=== PATIENT | male | born 1990 | race Caucasian/White ===

== ENCOUNTER → 2017-01-16 | Outpatient (CLI) | payer OTHER ==
--- NOTE | 2017-01-17 12:31 | REP ---
RIGHT TOES: HISTORY: Pain after trauma. COMPARISON: None. There is a subtle fracture involving the base of the tuft of the distal phalanx of the first digit, which is a hairline fracture and nondisplaced. IMPRESSION: Hairline fracture involving the distal aspect of the base of the tuft. Signed by Jack Quezada DO 01/17/2017 01:32 P
== END ==
LOC: M WUC 18:32
PROVIDERS: ATTEND Physician Assistant
DX: S92.424A Nondisplaced fracture of distal phalanx of right great toe, initial encounter for closed fracture (principal); X58.XXXA Exposure to other specified factors, initial encounter; Y92.9 Unspecified place or not applicable; Y93.9 Activity, unspecified; Y99.9 Unspecified external cause status

== ENCOUNTER → 2017-06-10 | Outpatient (CLI) | payer OTHER ==
[2017-06-10 18:19] LABS: ALBUMIN 4.2 GM/DL (3.2-5.2); ALBUMIN/GLOBULIN RATIO 1.17 (1.00-1.93); ALKALINE PHOSPHATASE 90 U/L (45-117); ALT/SGPT 27 U/L (12-78); ANION GAP 4 MEQ/L (8-16); AST/SGOT 18 U/L (15-37); BILIRUBIN,TOTAL 0.3 MG/DL (0.2-1.0); BLOOD UREA NITROGEN 15 MG/DL (7-18); CALCIUM LEVEL 9.5 MG/DL (8.5-10.1); CARBON DIOXIDE LEVEL 30 MEQ/L (21-32); CHLORIDE LEVEL 105 MEQ/L (98-107); CREATININE FOR GFR 1.01 MG/DL (0.70-1.30); GLOMERULAR FILTRATION RATE > 60.0 (>60); GLUCOSE, FASTING 79 MG/DL (70-105); POTASSIUM SERUM 4.2 MEQ/L (3.5-5.1); SODIUM LEVEL 139 MEQ/L (136-145); TOTAL PROTEIN 7.8 GM/DL (6.4-8.2)
[2017-06-10 18:50] LABS: MEAN CORPUSCULAR HEMOGLOBIN 29.3 pg (27.0-33.0); MEAN CORPUSCULAR HGB CONC 34.6 g/dl (32.0-36.5); MEAN CORPUSCULAR VOLUME 84.6 fl (80.0-96.0); RED CELL DISTRIBUTION WIDTH 12.1 % (11.5-14.5); WHITE BLOOD COUNT 8.6 10^3/uL (4.0-10.0)
[2017-06-10 19:52] LABS: BASOPHILS 2 % (0-4); EOSINOPHILS 6 % (0-5)
[2017-06-13 00:06] LABS: Lyme Disease IgG/IgM Antibodie <0.91 ISR (0.00-0.90); Lyme Disease IgM Ab Quantitati <0.80 index (0.00-0.79)
== END ==
LOC: M WUC 17:04
PROVIDERS: ATTEND Physician Assistant
DX: M79.1 Myalgia (principal)

== ENCOUNTER → 2018-04-25 | Outpatient (CLI) | payer OTHER ==
[2018-04-25 11:02] LABS: BASO % 0.5 % (0.0-1.0); EOS # 0.7 10^3/uL (0.0-0.50); EOS % 8.8 % (0.0-3.0); HEMATOCRIT 41.8 % (42.0-52.0); HEMOGLOBIN 14.1 g/dl (13.5-17.5); IMMATURE GRANULOCYTE % 0.2 % (0-3.0); LYMPH # 2.3 10^3/uL (1.5-6.5); LYMPH % 28.6 % (24.0-44.0); MEAN CORPUSCULAR HEMOGLOBIN 27.8 pg (27.0-33.0); MEAN CORPUSCULAR HGB CONC 33.7 g/dl (32.0-36.5); MEAN CORPUSCULAR VOLUME 82.4 fl (80.0-96.0); MONO # 0.8 10^3/uL (0.0-0.8); MONO % 9.6 % (0.0-5.0); NEUTROPHILS # 4.2 10^3/uL (1.8-7.7); NEUTROPHILS % 52.3 % (36.0-66.0); PLATELET COUNT, AUTOMATED 276 10^3/uL (150-450); RED BLOOD COUNT 5.07 10^6/uL (4.30-6.10); RED CELL DISTRIBUTION WIDTH 12.5 % (11.5-14.5)
[2018-04-25 11:19] LABS: ALBUMIN 3.7 GM/DL (3.2-5.2); ALBUMIN/GLOBULIN RATIO 0.93 (1.00-1.93); ALKALINE PHOSPHATASE 99 U/L (45-117); ALT/SGPT 45 U/L (12-78); AMYLASE 84 U/L (25-115); ANION GAP 3 MEQ/L (8-16); AST/SGOT 28 U/L (7-37); BILIRUBIN,TOTAL 0.4 MG/DL (0.2-1.0); BLOOD UREA NITROGEN 16 MG/DL (7-18); CALCIUM LEVEL 9.1 MG/DL (8.5-10.1); CARBON DIOXIDE LEVEL 31 MEQ/L (21-32); CHLORIDE LEVEL 108 MEQ/L (98-107); CREATININE FOR GFR 0.98 MG/DL (0.70-1.30); GLOMERULAR FILTRATION RATE > 60.0 (>60); GLUCOSE, FASTING 77 MG/DL (70-100); LIPASE 129 U/L (73-393); POTASSIUM SERUM 4.4 MEQ/L (3.5-5.1); SODIUM LEVEL 142 MEQ/L (136-145); TOTAL PROTEIN 7.7 GM/DL (6.4-8.2)
== END ==
LOC: M WUC 09:57
DX: R10.814 Left lower quadrant abdominal tenderness (principal)
CPT/HCPCS: 82150

== ENCOUNTER → 2019-01-25 | Outpatient (CLI) | payer OTHER ==
--- NOTE | 2019-01-26 02:45 | REP ---
Clinical: Contusion. Technique: Three views of the sacrum and coccyx. Findings: AP and lateral views demonstrate normal sacrum and coccyx with associated normal symmetric sacroiliac joints. No acute fracture or subluxation is appreciated. Surrounding soft tissues are unremarkable. Impression: Normal sacrum/coccyx radiograph series. Electronically Signed by Luis Peterson MD 01/26/2019 02:36 A
--- NOTE | 2019-01-26 02:47 | REP ---
Clinical: Back pain with recent trauma/contusion. Technique: AP, lateral, bilateral oblique and coned-down views of the lumbosacral spine. Findings: Alignment and lordosis maintained. No acute fracture / compression injury or subluxation. Disc spaces are relatively well maintained. No spondylolysis or spondylolisthesis. Impression: Essentially normal lumbosacral spine series. Electronically Signed by Luis Peterson MD 01/26/2019 02:39 A
== END ==
LOC: M WUC 09:43
PROVIDERS: ATTEND Physician Assistant
DX: S30.0XXA Contusion of lower back and pelvis, initial encounter (principal); X58.XXXA Exposure to other specified factors, initial encounter; Y92.89 Other specified places as the place of occurrence of the external cause

== ENCOUNTER → 2019-03-02 | Outpatient (REF) | payer OTHER | LOC: M SMT 13:24 | PROVIDERS: ATTEND Urology | DX: Z30.09 Encounter for other general counseling and advice on contraception (principal) ==

== ENCOUNTER → 2019-05-25 | Outpatient (REF) | payer OTHER ==
[~2019-05-25] MED LIST: xyzal
[2019-05-25 13:41] LABS: SEMEN APPEARANCE OPAQUE (OPAQUE); SEMEN VISCOSITY LIQUID (LIQUID); SEMEN pH 8.5 (7.0-8.0); WBC CONCENTRATION <=1 M/ml (<=1 M/ml)
== END ==
LOC: M SMT 11:55
PROVIDERS: ATTEND Urology
DX: Z30.09 Encounter for other general counseling and advice on contraception (principal)

== ENCOUNTER 2019-05-31 09:19 | Emergency (ER) | payer OTHER ==
[~2019-05-31] VITALS: Ht 175.3 cm; Wt 98.6 kg
[2019-05-31] MEDS ORDERED: xyzal (09:24)
[2019-05-31] MEDS ORDERED: NS 1,000 ML IV ONE ×2 (09:45→10:15)
[2019-05-31 10:05] LABS: BASO % 0.2 % (0.0-1.0); EOS # 0.2 10^3/uL (0.0-0.5); EOS % 1.3 % (0.0-3.0); HEMATOCRIT 43.6 % (42.0-52.0); HEMOGLOBIN 14.4 g/dl (13.5-17.5); LYMPH # 0.8 10^3/uL (1.5-5.0); LYMPH % 6.6 % (24.0-44.0); MEAN CORPUSCULAR VOLUME 84.7 fl (80.0-96.0); MONO # 0.4 10^3/uL (0.0-0.8); MONO % 3.4 % (0.0-5.0); NEUTROPHILS # 10.5 10^3/uL (1.5-8.5); NEUTROPHILS % 88.2 % (36.0-66.0); PLATELET COUNT, AUTOMATED 247 10^3/uL (150-450); RED BLOOD COUNT 5.15 10^6/uL (4.30-6.10); WHITE BLOOD COUNT 11.9 10^3/uL (4.0-10.0)
[2019-05-31] MEDS ORDERED: KETOROLAC 30 MG/ML VIAL (J1885) IV ONE ×2 (10:15→13:15)
[2019-05-31 10:29] LABS: BILIRUBIN,DIRECT 0.2 MG/DL (0.0-0.2); BILIRUBIN,TOTAL 0.6 MG/DL (0.2-1.0); TOTAL PROTEIN 7.7 GM/DL (6.4-8.2)
--- NOTE | 2019-05-31 12:26 | REP ---
CT ABDOMEN AND PELVIS WITHOUT CONTRAST: CT abdomen and pelvis performed without oral or IV contrast. Sagittal and coronal reconstruction images are performed. Visualized lung bases demonstrate no infiltrate. The liver demonstrates diffuse fatty infiltration. The gallbladder is grossly unremarkable. The spleen, adrenals, pancreas, and kidneys are grossly unremarkable. No renal, ureteral or bladder calculus is seen. There is no hydroureteronephrosis. There is no abdominal aortic aneurysm. There is no adenopathy. There is no free air or free fluid. No bowel wall thickening is seen. The appendix is not inflamed. The distal end of the appendix demonstrates diffuse calcification. No pelvic mass is seen. Urinary bladder is mildly distended and is grossly unremarkable. IMPRESSION: No renal or ureteral calculus. No hydroureteronephrosis. No evidence of appendicitis. Diffuse fatty infiltration of the liver. Electronically Signed by Thai Jane MD 06/01/2019 10:11 A
[2019-05-31] MEDS ORDERED: CYCLOBENZAPRINE 5MG TABLET PO ONE (13:15)
[2019-05-31] MEDS ORDERED: ACETAMINOPHEN 500 MG TAB PO ONE (13:15)
[2019-05-31 14:23] VITALS: BP 10/60
== END 2019-05-31 15:12 | disposition home or self-care (01) ==
LOC: M ED 09:19
DX: M79.10 Myalgia, unspecified site (principal); R11.2 Nausea with vomiting, unspecified
CPT/HCPCS: 74176; 80047; 80076; 81001; 82550; 83690; 85025; 85652; 96361; 96374; 96376; 99284; J1885

== ENCOUNTER → 2019-06-03 | Outpatient (CLI) | payer OTHER ==
--- NOTE | 2019-06-03 17:51 | REP ---
SCROTAL ULTRASOUND: Real-time sonographic evaluation of the scrotum and contents are performed. Testicles are normal in size and echotexture, right testicle measuring 4.7 x 2.3 x 2.6 cm and left testicle 4.6 x 2.3 x 2.6 cm. There is no mass or torsion. Tiny cyst is seen in the head of each epididymis about 2 mm in diameter. No varicocele or hydrocele is seen. Resistive index right testicle 0.49 and 0.51. IMPRESSION: Essentially negative scrotal ultrasound. Tiny cyst is seen in the head of each epididymis. No testicular mass or torsion. Electronically Signed by Thai Jane MD 06/03/2019 06:56 P
== END ==
LOC: M RAD 13:53
PROVIDERS: ATTEND Nurse Practitioner Women's Health
DX: N50.819 Testicular pain, unspecified (principal); N50.3 Cyst of epididymis

== ENCOUNTER → 2019-07-05 | Outpatient (REF) | payer OTHER ==
[2019-07-05 11:49] LABS: CHOLESTEROL RISK RATIO 3.96 (<5)
== END ==
LOC: M SFHCCLAY 08:23
PROVIDERS: ATTEND Family Medicine
DX: K76.0 Fatty (change of) liver, not elsewhere classified (principal); Z13.220 Encounter for screening for lipoid disorders

== ENCOUNTER → 2020-01-04 | Outpatient (REF) | payer OTHER ==
[2020-01-04 12:03] LABS: ALBUMIN 3.9 GM/DL (3.2-5.2); ALT/SGPT 79 U/L (12-78); BILIRUBIN,DIRECT < 0.1 MG/DL (0.0-0.2); BILIRUBIN,TOTAL 0.4 MG/DL (0.2-1.0); TOTAL PROTEIN 7.8 GM/DL (6.4-8.2)
== END ==
LOC: M SFHCCLAY 07:57
PROVIDERS: ATTEND Family Medicine
DX: K76.0 Fatty (change of) liver, not elsewhere classified (principal)

== ENCOUNTER 2021-03-26 10:01 | Observation (INO) | payer OTHER ==
[~2021-03-26] VITALS: Ht 175.3 cm; Wt 109.0 kg
--- NOTE | 2021-03-26 11:58 | REP ---
INDICATION: cold sx for 1 month/ previous neg covid test. COMPARISON: Comparison chest x-ray April 25, 2018. TECHNIQUE: Two views.. FINDINGS: The lungs are well inflated and free of infiltrate. The pleural angles are sharp. The heart size is normal. Pulmonary vasculature is not increased. No significant bony abnormality is seen. IMPRESSION: Negative chest x-ray. <Electronically signed by Phani Souza > 03/26/21 [id number]
[2021-03-26] MEDS ORDERED: NS 1,000 ML IV ONE (12:00)
[2021-03-26] MEDS ORDERED: ALBUTEROL 90 MCG/ACT 8GM HFA INHALER INH ONE (12:00)
[2021-03-26 12:34] LABS: BASO # 0.1 10^3/uL (0.0-0.2); BASO % 0.3 % (0.0-1.0); EOS # 0.2 10^3/uL (0.0-0.5); EOS % 1.2 % (0.0-3.0); HEMATOCRIT 43.7 % (42.0-52.0); HEMOGLOBIN 14.2 g/dl (13.5-17.5); LYMPH # 2.7 10^3/uL (1.5-5.0); LYMPH % 15.4 % (24.0-44.0); MEAN CORPUSCULAR HEMOGLOBIN 26.6 pg (27.0-33.0); MEAN CORPUSCULAR HGB CONC 32.5 g/dl (32.0-36.5); MEAN CORPUSCULAR VOLUME 81.8 fl (80.0-96.0); MONO # 0.8 10^3/uL (0.0-0.8); MONO % 4.6 % (2.0-8.0); NEUTROPHILS # 13.8 10^3/uL (1.5-8.5); NEUTROPHILS % 78.1 % (36.0-66.0); PLATELET COUNT, AUTOMATED 281 10^3/uL (150-450); RED BLOOD COUNT 5.34 10^6/uL (4.30-6.10); WHITE BLOOD COUNT 17.7 10^3/uL (4.0-10.0)
[2021-03-26 13:19] LABS: MONO SCRN NEGATIVE (NEGATIVE)
[2021-03-26 13:22] LABS: ALBUMIN 3.8 GM/DL (3.2-5.2); ALT/SGPT 74 U/L (12-78); BILIRUBIN,DIRECT 0.1 MG/DL (0.0-0.2); BILIRUBIN,TOTAL 0.5 MG/DL (0.2-1.0); BLOOD UREA NITROGEN 13 MG/DL (7-18); CALCIUM LEVEL 9.2 MG/DL (8.5-10.1); CARBON DIOXIDE LEVEL 28 MEQ/L (21-32); CHLORIDE LEVEL 106 MEQ/L (98-107); CK-MB VALUE MASS 1.6 NG/ML (<3.6); CPK CREATINE PHOSPHOKINASE 220 U/L (39-308); CREATININE FOR GFR 1.05 MG/DL (0.70-1.30); GLOMERULAR FILTRATION RATE > 60.0 (>60); GLUCOSE, FASTING 83 MG/DL (70-100); MB/CK RELATIVE INDEX 0.73 (< OR =4); NT-PRO BNP 25 PG/ML (<125); POTASSIUM SERUM 4.3 MEQ/L (3.5-5.1); SODIUM LEVEL 138 MEQ/L (136-145); THYROID STIMULATING HORMONE 0.455 uIU/ML (0.358-3.740); THYROXINE (T4) 6.8 UG/DL (4.5-12.0); TOTAL PROTEIN 7.8 GM/DL (6.4-8.2); TROPONIN I < 0.02 NG/ML (< 0.10)
[2021-03-26] MEDS ORDERED: ISOVUE-370 76% 100ML VIAL As Ordered ONE (13:53)
--- NOTE | 2021-03-26 15:02 | REP ---
INDICATION: fever/sob. COMPARISON: Comparison is made with today's chest x-ray.. TECHNIQUE: 100 mL of Isovue 370 is administered and helical scanning is acquired. 3 mm axial images re-formatted. Coronal and sagittal MPR images are provided. FINDINGS: Digital preliminary relief cook radiograph is unremarkable. The lung beltran are free of infiltrate on axial CT images. No mass or nodule is appreciated. There is no evidence of pleural or pericardial effusion. No hilar or mediastinal mass or adenopathy is observed. No extra thoracic mass or adenopathy is seen. There is good opacification of the pulmonary arterial tree and the thoracic aorta and no vascular abnormality is appreciated. No endobronchial disease is appreciated. On bone window settings, no bony destructive lesion or fracture is seen. IMPRESSION: Negative contrast enhanced CT study of the chest. No evidence of infiltrate or atelectasis. <Electronically signed by Phani Souza > 03/26/21 [id number]
--- NOTE | 2021-03-26 15:08 | REP ---
INDICATION: fever/flank pain. COMPARISON: None. TECHNIQUE: Helical scanning was acquired and 4 mm axial images are re-formatted. Coronal and sagittal MPR images were generated and reviewed. The contrast enhancement dose is 100 mL of intravenous Isovue 370. FINDINGS: The digital preliminary automatic buffer radiograph is unremarkable. There is mild diffuse fatty infiltration of the liver on axial CT images. No focal hepatic lesion is seen. The spleen is normal in size homogeneous in texture. Normal adrenal glands are observed bilaterally. No abnormality is noted in the pancreas. The kidneys enhance symmetrically and are morphologically intact bilaterally. There is focal cortical scarring posterior cortex lower pole left kidney consistent with previous pyelonephritis reflux nephropathy. There is a small accessory renal artery on the left. No retroperitoneal mass or adenopathy is seen. No abdominal wall defect is seen. Urinary bladder, seminal vesicles, and prostate are unremarkable. No abdominal wall defect is seen. By history, patient reports prior appendectomy. No inflammatory changes are seen in the abdomen or pelvis. Small and large bowel loops are unremarkable. No bony destructive lesion is seen. IMPRESSION: Old focal cortical scarring lower pole left kidney posterior cortex question prior pyelonephritis versus reflux nephropathy. Mild diffuse fatty infiltration of the liver. Otherwise negative CT study of the abdomen and pelvis with IV contrast. <Electronically signed by Phani Souza > 03/26/21 [id number]
--- NOTE | 2021-03-26 15:11 | ECGEPIP ---
[facility] - ED Test Date: 2021-03-26 Pat Name: RICH CARRERO Department: Room: - Gender: Male [employer] Manager: : 1990 Requested By: BRIANA SANDERS PA-C Order Number: [id number] Reading MD: Popeye Davidson Measurements Intervals [place] Rate: 65 P: 52 SD: 152 QRS: 16 QRSD: 78 T: 12 QT: 388 QTc: 403 Interpretive Statements Normal sinus rhythm NONSPECIFIC T WAVE ABNORMALITY(S) NO PRIORS FOR COMPARISON Electronically Signed on 03-26-2021 15:10:48 EDT by Popeye Davidson
[2021-03-26 16:35] VITALS: O2SAT 97
[2021-03-26] MEDS ORDERED: LEVOTAB10 PO (18:52)
[2021-03-26] MEDS ORDERED: MAALOX 30 ML SUSP *UDC PO PRN (19:25)
[2021-03-26] MEDS ORDERED: ACETAMINOPHEN TAB 650MG DOSE (2X325MG) PO PRN (19:25)
[2021-03-26] MEDS ORDERED: MOM 30ML SUSPENSION UDC PO PRN (19:25)
--- NOTE | 2021-03-26 19:25 | HPEPDOC ---
[facility] Medical History & Physical Date of Admission Mar 26, 2021 Date of Service: Mar 26, 2021 Primary Care Physician: GARRETT TOURE DO Attending Physician: YOKASTA WALKER MD History and Physical TIME OF SERVICE: 8:25 PM CHIEF COMPLAINT: Fever HISTORY OF PRESENT ILLNESS: Mr. Shipley, a 30-year-old gentleman, has been feeling unwell for about 6 or 7 weeks. He has been having relapsing and remitting fevers as high as 102.7, back aches and joint aches, along with "flulike symptoms". He has not noticed if his symptoms occurred during certain times of the day. He has had multiple negative Covid test. REVIEW OF SYSTEMS: 10 point review of systems negative except as listed in HPI PAST MEDICAL/ SURGICAL HISTORY: Fatty liver, appendectomy, vasectomy SOCIAL HISTORY: He does not smoke drink or use recreational drugs is and lives with his . He works at the [employer] and mentioned that he has been is exposed to goose droppings every summer since 2017. FAMILY HISTORY: He denied any family medical history ALLERGIES: Please see below. HOME MEDICATIONS: Please see below. PHYSICAL EXAMINATION: Vital Signs Date Time Temp Pulse Resp B/P (MAP) Pulse Ox O2 Delivery O2 Flow Rate FiO2 03/26/21 10:02 98.9 95 16 158/84 (108) 94 Room Air GENERAL APPEARANCE: well nourished and developed / NAD HEENT: EOMI / MMM&P CARDIOVASCULAR: RRR/NMRG / no LE edema LUNGS: CTAB on RA ABDOMEN: contour flat / soft & NT w palpation MUSCULOSKELETAL: NCAT /gait slow and slightly stiff is complaining of back pain INTEGUMENT: not flushed not diaphoretic not cyanotic/hypertrophy of the epidermal skin on both knees NEUROLOGICAL: CN 2-12 intact / speech not dysarthric PSYCHIATRIC: A&O x3/able to understand and follow all commands LABORATORY DATA: See below. IMAGING: Chest x-ray IMPRESSION: Negative chest x-ray. CT abdomen and pelvis IMPRESSION: Old focal cortical scarring lower pole left kidney posterior cortex question prior pyelonephritis versus reflux nephropathy. Mild diffuse fatty infiltration of the liver. Otherwise negative CT study of the abdomen and pelvis with IV contrast. Chest CT IMPRESSION: Negative contrast enhanced CT study of the chest. No evidence of infiltrate or atelectasis. MICROBIOLOGY: Respiratory panel, mono screen, and group A strep are negative/blood cultures cultures and Lyme disease testing are pending ASSESSMENT: Mr. Shipley is a 30-year-old gentleman who was admitted for evaluation of leukocytosis of unclear cause. PLAN: 1 Leuocytosis We do not yet have any documented fever yet Per up-to-date he does not quite meet the criteria for fever of unknown origin because he has not had an uncertain diagnosis after 1 week of studies and observation in the hospital. My suspicion is this is more likely idiopathic or autoimmune / rheumatological in nature Plan: Admit to the medical floor under observation status/follow-up HIV, Hepatitis panel, Lyme's disease, ESR, CRP, blood cultures, C3, C4,SALINA, dsDNA, CPK, RF, and HIV testing & Echo /if work-up is equivocal his PCP or the daytime team may consider referral to counter tacker on an outpatient basis 2 Elevated blood pressure His readings in the ER elevated which may be due to essential hypertension or stress & anxiety Plan:f/u on manual blood pressure / he can follow-up with his PCP for repeat blood pressure testing and/or ambulatory blood pressure monitor 3 Class II obesity BMI 35.5 which complicates his care Plan: He can follow-up with his PCP to discuss lifestyle modifications and screening for diabetes DVT PROPHYLAXIS: n/a he is ambulatory and his Philip score is 0 therefore pharmacological prophylaxis is not indicated DISPOSITION: home after less than 2 midnight's stay Home Medications Scheduled Levocetirizine Dihydrochloride (Levocetirizine Dihydrochloride) 5 Mg Tablet, 5 MG PO DAILY Allergies Coded Allergies: No Known Allergies (Unverified , 05/31/19) A-FIB/CHADSVASC A-FIB History Current/History of A-Fib/PAF?: No Current PO Anticoag Therapy: No YOKASTA WALKER MD Mar 26, 2021 19:25
[2021-03-27 06:26] LABS: HEMATOCRIT 43.8 % (42.0-52.0); HEMOGLOBIN 14.1 g/dl (13.5-17.5); MEAN CORPUSCULAR HEMOGLOBIN 26.3 pg (27.0-33.0); MEAN CORPUSCULAR HGB CONC 32.2 g/dl (32.0-36.5); MEAN CORPUSCULAR VOLUME 81.7 fl (80.0-96.0); PLATELET COUNT, AUTOMATED 290 10^3/uL (150-450); RED BLOOD COUNT 5.36 10^6/uL (4.30-6.10); WHITE BLOOD COUNT 9.2 10^3/uL (4.0-10.0)
[2021-03-27 07:01] LABS: BLOOD UREA NITROGEN 14 MG/DL (7-18); CALCIUM LEVEL 8.3 MG/DL (8.5-10.1); CARBON DIOXIDE LEVEL 27 MEQ/L (21-32); CHLORIDE LEVEL 107 MEQ/L (98-107); CREATININE FOR GFR 0.94 MG/DL (0.70-1.30); GLOMERULAR FILTRATION RATE > 60.0 (>60); GLUCOSE, FASTING 88 MG/DL (70-100); POTASSIUM SERUM 4.1 MEQ/L (3.5-5.1); SODIUM LEVEL 139 MEQ/L (136-145)
[2021-03-27 07:04] LABS: COMPLEMENT C3 154 MG/DL (90-180); COMPLEMENT C4 34 MG/DL (10-40); CPK CREATINE PHOSPHOKINASE 183 U/L (39-308); RHEUMATOID FACTOR QUANT < 10.0 IU/ML (<15.0)
[2021-03-27] MEDS ORDERED: NORV5TAB PO (08:32)
[2021-03-27 09:22] LABS: HEPATITIS B SURFACE ANTIGEN NEGATIVE (NEGATIVE)
[2021-03-27 09:50] LABS: HEPATITIS B CORE ANTIBODY IGM NEGATIVE (NEGATIVE); HEPATITIS C VIRUS ABY INDEX 0.1 INDEX (<0.8)
[2021-03-27 09:51] LABS: HIV 1&2 SCREEN CENTAUR NEGATIVE (NEGATIVE)
[2021-03-27 09:52] LABS: HEPATITIS A ANTIBODY IGM NEGATIVE (NEGATIVE)
[2021-03-27 10:05] VITALS: BP 155/82
--- NOTE | 2021-03-27 10:59 | DS.PDOC ---
Discharge Summary General Date of Admission Mar 26, 2021 at 10:02 Date of Discharge 03/27/21 Attending Physician: CHINYERE FERNANDES MD Discharge Summary PROCEDURES PERFORMED DURING STAY: None. ADMITTING DIAGNOSES: 1. Leukocytosis. DISCHARGE DIAGNOSES: 1. Leukocytosis, hypertension, allergies to dogs. COMPLICATIONS/CHIEF COMPLAINT: Leukocytosis. HISTORY OF PRESENT ILLNESS: Patient was admitted with leukocytosis and fever of unknown origin, patient was found afebrile no fever could be documented and he was admitted for observation only.. HOSPITAL COURSE: Patient was admitted with leukocytosis, he had remained afebrile during his stay and there is no documentation of fever Per up-to-date he does not quite meet the criteria for fever of unknown origin because he has not had an uncertain diagnosis after 1 week of studies and observation in the hospital. Patient states allergy medications as he has 2 Labrador dogs which she is allergic to. Patient was informed that allergy medications can cause hypertension as well as other symptoms if he can avoid taking these medication. He was advised to follow-up with special education curriculum specialist for possibly other options such as desensitization to his dogs and he wants to keep them with him. Regarding his hypertension he was prescribed 5 Norvasc 5 mg p.o. daily and advised to discontinue all allergy medication including over the counter allergy medication as Sudafed as they can cause hypertension. Patient advised to follow-up with his primary care physician within 1 week for recheck and his blood pressure and changes medications as needed. Patient's repeat WBC count is within normal limits. DISPOSITION: home DISCHARGE MEDICATIONS: Please see below. ALLERGIES: Please see below. PHYSICAL EXAMINATION ON DISCHARGE: VITAL SIGNS: Please see below. GENERAL: Within normal limits HEENT: PERRLA extraocular muscle intact NECK: Supple no JVD no lymphadenopathy CARDIOVASCULAR EXAMINATION: S1-S2 regular RESPIRATORY EXAMINATION: Clear to A&P ABDOMINAL EXAMINATION: Soft nontender bowel sounds present no organomegaly EXTREMITIES: No clubbing sinus edema SKIN: Normal NEUROLOGICAL EXAMINATION: No focal motor or sensory deficit PSYCHIATRIC EXAMINATION: Normal LABORATORY DATA: Please see below. IMAGING: None PROGNOSIS: Good ACTIVITY: As tolerated. DIET: Regular DISCHARGE PLAN: DISPOSITION: Home, Self-Care. DISCHARGE INSTRUCTIONS: 1.. As per discharge instructions ITEMS TO FOLLOWUP ON ON OUTPATIENT: 1.. Follow-up with PCP in 1 week DISCHARGE CONDITION: Stable. TIME SPENT ON DISCHARGE: 22 min Vital Signs/I&Os Vital Signs Date Time Temp Pulse Resp B/P (MAP) Pulse Ox O2 Delivery O2 Flow Rate FiO2 03/27/21 10:05 98.1 68 20 155/82 (106) 99 Room Air I&O- Last 24 Hours up to 6 AM 03/27/21 06:00 Intake Total 1000 ml Balance 1000 ml Laboratory Data Labs 24H Laboratory Tests 2 03/26/21 12:16: 03/26/21 12:24: Immature Granulocyte % (Auto) 0.4, Neutrophils (%) (Auto) 78.1H, Lymphocytes (%) (Auto) 15.4L, Monocytes (%) (Auto) 4.6, Eosinophils (%) (Auto) 1.2, Basophils (%) (Auto) 0.3, Neutrophils # (Auto) 13.8H, Lymphocytes # (Auto) 2.7, Monocytes # (Auto) 0.8, Eosinophils # (Auto) 0.2, Basophils # (Auto) 0.1, Nucleated Red Blood Cells % (auto) 0.0, D-Dimer, Quantitative 361.67, Anion Gap 4L, Glomerular Filtration Rate > 60.0, Lactic Acid Level 1.1, Calcium Level 9.2, Total Bilirubin 0.5, Direct Bilirubin 0.1, Aspartate Amino Transf (AST/SGOT) 36, Alanine Aminotransferase (ALT/SGPT) 74, Alkaline Phosphatase 101, Total Creatine Kinase 220, Creatine Kinase MB 1.6, Creatine Kinase MB Relative Index 0.73, Troponin I < 0.02, WO-Qcn-N-Type Natriuretic Peptide 25, Total Protein 7.8, Albumin 3.8, Albumin/Globulin Ratio 1.0, Thyroid Stimulating Hormone (TSH) 0.455, Thyroxine (T4) 6.8, Monoscreen NEGATIVE 03/26/21 13:25: POC Group A Strep Rapid Screen NEGATIVE 03/26/21 17:27: Urine Color YELLOW, Urine Appearance CLEAR, Urine pH 6.0, Urine Specific [place] 1.054, Urine Protein NEGATIVE, Urine Glucose (UA) NEGATIVE, Urine Ketones TRACEH, Urine Blood NEGATIVE, Urine Nitrite NEGATIVE, Urine Bilirubin NEGATIVE, Urine Urobilinogen 0.2, Urine Leukocyte Esterase NEGATIVE, Urine WBC (Auto) 0, Urine RBC (Auto) 0, Urine Hyaline Casts (Auto) 0, Urine Bacteria (Auto) NEGATIVE, Urine Squamous Epithelial Cells 0, Urine Mucus (Auto) SMALL, Urine Sperm (Auto) 03/26/21 19:10: Erythrocyte Sedimentation Rate 11, C-Reactive Protein, Quantitative 2.31H, Procalcitonin <0.05 03/27/21 05:37: Nucleated Red Blood Cells % (auto) 0.0, Anion Gap 5L, Glomerular Filtration Rate > 60.0, Calcium Level 8.3L, Total Creatine Kinase 183, Rheumatoid Factor < 10.0, Complement C3 154, Complement C4 34, Hepatitis A IgM Antibody NEGATIVE, Hepatitis B Surface Antigen NEGATIVE, Hepatitis B Core IgM Antibody NEGATIVE, Hepatitis C Antibody Index 0.1, HIV Antigen/Antibody Combo Qual NEGATIVE CBC/BMP Laboratory Tests 03/26/21 12:24 03/27/21 05:37 Microbiology Microbiology 03/26/21 Blood Culture, Received Pending 03/26/21 Blood Culture, Received Pending 03/26/21 Group A Streptococcus Screen ([facility]) - Final, Complete 03/26/21 Respiratory Virus Panel (PCR) ([facility]) - Final, Complete Discharge Medications Scheduled Amlodipine Besylate (Norvasc) 5 Mg Tablet, 1 TAB PO DAILY Allergies Coded Allergies: No Known Allergies (Unverified , 05/31/19) CHINYERE FERNANDES MD Mar 27, 2021 10:59
[2021-03-28 19:08] LABS: Lyme Disease IgG/IgM Antibodie <0.91 ISR (0.00-0.90); Lyme Disease IgM Ab Quantitati <0.80 index (0.00-0.79)
[2021-03-29 10:09] LABS: ANTI DS-DNA AB Negative (Negative); ANTINUCLEAR ANTIBODIES DIRECT Negative (Negative)
== END 2021-03-27 10:08 | disposition home or self-care (01) ==
LOC: M ED 10:01 → M ED INP 10:02
PROVIDERS: ADMIT Internal Medicine; ATTEND Internal Medicine
DX: D72.829 Elevated white blood cell count, unspecified (principal); I10 Essential (primary) hypertension; E66.9 Obesity, unspecified; Z68.35 Body mass index [BMI] 35.0-35.9, adult; M79.10 Myalgia, unspecified site; J45.909 Unspecified asthma, uncomplicated; Z79.899 Other long term (current) drug therapy
CPT/HCPCS: 36415; 71046; 71260; 74177; 80048; 80076; 81001; 82550; 82553; 83605; 83880; 84145; 84436; 84443; 84484; 85025; 85027; 85379; 85652; 86038; 86140; 86160; 86225; 86308; 86431; 86617; 86705; 86709; 86803; 87040; 87077; 87186; 87340; 87389; 87798; 87880; 93005; 94640; 96360; 96361; 99284; Q9967

== ENCOUNTER → 2021-04-24 | Outpatient (REF) | payer OTHER ==
[~2021-04-24] MED LIST changes: +LEVOTAB10 PO; +NORV5TAB PO
== END ==
LOC: M SFHCCLAY 11:39
PROVIDERS: ATTEND Family Medicine
DX: A68.9 Relapsing fever, unspecified (principal); A49.1 Streptococcal infection, unspecified site

== ENCOUNTER → 2021-04-26 | Outpatient (CLI) | payer OTHER ==
[2021-04-26 09:13] LABS: HEMATOCRIT 44.8 % (42.0-52.0); HEMOGLOBIN 14.7 g/dl (13.5-17.5); MEAN CORPUSCULAR HEMOGLOBIN 27.2 pg (27.0-33.0); MEAN CORPUSCULAR HGB CONC 32.8 g/dl (32.0-36.5); MEAN CORPUSCULAR VOLUME 82.8 fl (80.0-96.0); PLATELET COUNT, AUTOMATED 299 10^3/uL (150-450); RED BLOOD COUNT 5.41 10^6/uL (4.30-6.10); WHITE BLOOD COUNT 8.1 10^3/uL (4.0-10.0)
[2021-04-26 09:38] LABS: ERYTHROCYTE SEDIMENTATION RATE 8 mm/hr (0-15)
--- NOTE | 2021-04-26 20:18 | ECHO ---
ECHOCARDIOGRAM DATE OF PROCEDURE: 04/26/2021 Age: Gender: Male Height: 175 cm Weight: 105 kg REFERRING PHYSICIAN: Paige Stevens D.O. INDICATION: Relapsing fever. MEASUREMENTS: IVS 0.9 LV 5.1 LVPW 1.0 LA 4.3 Aorta 3.1 Left atrial volume index 27 Mitral E wave velocity 71 A wave 51 E prime septal 7.6 E prime lateral 9.1 FINDINGS: This study is of excellent technical quality. The patient is in sinus rhythm. Left ventricle is of normal size and systolic function. The calculated left ventricular ejection fraction (LVEF) is 60%. Normal right ventricular (RV) size and systolic function. Both atria are normal. Aortic, mitral, tricuspid and pulmonic valves were all well seen and appear normal. No pericardial effusion is noted. Inferior vena cava was not well seen. Aortic root is normal. Aortic arch and abdominal aorta were not well visualized. Doppler interrogation reveals competent aortic valve. There is trace mitral and trace tricuspid and pulmonic insufficiency. Quality of TR jet was not adequate to calculate pulmonary artery pressure. Mitral inflow pattern and tissue Doppler imaging of the mitral annulus reveal normal diastolic function. CONCLUSIONS: 1. Study is of excellent technical quality. Patient is in sinus rhythm. 2. Normal left ventricular (LV) size, systolic and diastolic function. Calculated left ventricular ejection fraction (LVEF) is 60%. 3. No significant valvular disease. 4. Unable to estimate central venous pressure or pulmonary artery pressure, but no signs to suggest pulmonary hypertension.
== END ==
LOC: M LAB 08:25
PROVIDERS: ATTEND Family Medicine
DX: A68.9 Relapsing fever, unspecified (principal)

== ENCOUNTER → 2021-05-06 | Outpatient (CLI) | payer OTHER ==
[2021-05-06 13:35] LABS: BASO # 0.1 10^3/uL (0.0-0.2); BASO % 0.9 % (0.0-1.0); EOS # 0.8 10^3/uL (0.0-0.5); EOS % 8.7 % (0.0-3.0); HEMATOCRIT 46.4 % (42.0-52.0); HEMOGLOBIN 15.1 g/dl (13.5-17.5); LYMPH # 2.4 10^3/uL (1.5-5.0); LYMPH % 27.2 % (24.0-44.0); MEAN CORPUSCULAR HEMOGLOBIN 26.8 pg (27.0-33.0); MEAN CORPUSCULAR HGB CONC 32.5 g/dl (32.0-36.5); MEAN CORPUSCULAR VOLUME 82.4 fl (80.0-96.0); MONO # 0.7 10^3/uL (0.0-0.8); MONO % 8.2 % (2.0-8.0); NEUTROPHILS # 4.8 10^3/uL (1.5-8.5); NEUTROPHILS % 54.5 % (36.0-66.0); PLATELET COUNT, AUTOMATED 321 10^3/uL (150-450); RED BLOOD COUNT 5.63 10^6/uL (4.30-6.10); WHITE BLOOD COUNT 8.8 10^3/uL (4.0-10.0)
[2021-05-06 14:08] LABS: ALBUMIN 3.9 GM/DL (3.2-5.2); ALT/SGPT 70 U/L (12-78); BILIRUBIN,TOTAL 0.3 MG/DL (0.2-1.0); BLOOD UREA NITROGEN 12 MG/DL (7-18); C REACTIVE PROTEIN QUANTITATIV 0.96 MG/DL (0.00-0.30); CALCIUM LEVEL 9.2 MG/DL (8.5-10.1); CARBON DIOXIDE LEVEL 28 MEQ/L (21-32); CHLORIDE LEVEL 106 MEQ/L (98-107); CREATININE FOR GFR 1.14 MG/DL (0.70-1.30); FERRITIN 45 NG/ML (26-388); GLOMERULAR FILTRATION RATE > 60.0 (>60); GLUCOSE, FASTING 89 MG/DL (70-100); LDH LACTATE DEHYDROGENASE 183 U/L (87-241); POTASSIUM SERUM 4.7 MEQ/L (3.5-5.1); SODIUM LEVEL 139 MEQ/L (136-145); TOTAL PROTEIN 8.4 GM/DL (6.4-8.2)
== END ==
LOC: M PLALAB 11:33
PROVIDERS: ATTEND Internal Medicine Infectious Disease
DX: R50.9 Fever, unspecified (principal)

== ENCOUNTER → 2021-05-28 | Outpatient (REF) | payer OTHER | LOC: M LABDRAWC 15:44 | PROVIDERS: ATTEND Internal Medicine Infectious Disease | DX: R50.9 Fever, unspecified (principal) ==

== ENCOUNTER → 2021-09-25 | Outpatient (REF) | LOC: M LABSMTC 09:37 | PROVIDERS: ATTEND Pediatrics | DX: Z11.52 Encounter for screening for COVID-19 (principal) ==

== ENCOUNTER 2022-05-01 21:49 | Emergency (ER) | payer OTHER ==
[~2022-05-01] VITALS: Ht 175.3 cm; Wt 105.3 kg
[2022-05-01 23:17] LABS: RSV AMPLIFICATION NEGATIVE (NEGATIVE)
[2022-05-02] MEDS ORDERED: ACETAMINOPHEN 325 MG TAB PO ONE (00:30)
[2022-05-02 00:32] VITALS: BP 135/75; O2SAT 97
== END 2022-05-02 01:09 | disposition home or self-care (01) ==
LOC: M ED 21:49
DX: U07.1 COVID-19 (principal); R52 Pain, unspecified; R11.0 Nausea; I10 Essential (primary) hypertension; J30.2 Other seasonal allergic rhinitis; Z79.899 Other long term (current) drug therapy

== ENCOUNTER → 2022-05-01 | Outpatient (CLI) | payer OTHER ==
[2022-05-01 17:34] LABS: BASO % 0.5 % (0.0-1.0); EOS # 0.1 10^3/uL (0.0-0.5); HEMATOCRIT 42.9 % (42.0-52.0); HEMOGLOBIN 14.2 g/dl (13.5-17.5); LYMPH # 0.6 10^3/uL (1.5-5.0); LYMPH % 9.7 % (24.0-44.0); MEAN CORPUSCULAR HEMOGLOBIN 28.5 pg (27.0-33.0); MEAN CORPUSCULAR HGB CONC 33.1 g/dl (32.0-36.5); MONO # 0.9 10^3/uL (0.0-0.8); MONO % 13.9 % (2.0-8.0); NEUTROPHILS # 4.8 10^3/uL (1.5-8.5); NEUTROPHILS % 73.6 % (36.0-66.0); PLATELET COUNT, AUTOMATED 236 10^3/uL (150-450); RED BLOOD COUNT 4.99 10^6/uL (4.30-6.10); WHITE BLOOD COUNT 6.5 10^3/uL (4.0-10.0)
[2022-05-01 18:07] LABS: ALBUMIN 3.9 GM/DL (3.2-5.2); ALT/SGPT 104 U/L (12-78); BILIRUBIN,TOTAL 0.6 MG/DL (0.2-1.0); BLOOD UREA NITROGEN 14 MG/DL (7-18); C REACTIVE PROTEIN QUANTITATIV 3.45 MG/DL (0.00-0.30); CALCIUM LEVEL 9.3 MG/DL (8.5-10.1); CARBON DIOXIDE LEVEL 26 MEQ/L (21-32); CHLORIDE LEVEL 102 MEQ/L (98-107); CREATININE FOR GFR 1.22 MG/DL (0.70-1.30); GLOMERULAR FILTRATION RATE > 60.0 (>60); GLUCOSE, FASTING 81 MG/DL (70-100); POTASSIUM SERUM 4.4 MEQ/L (3.5-5.1); SODIUM LEVEL 135 MEQ/L (136-145)
[2022-05-01 19:56] LABS: ERYTHROCYTE SEDIMENTATION RATE 22 mm/hr (0-15)
== END ==
LOC: M WUC 11:43
PROVIDERS: ATTEND Physician Assistant
DX: R50.9 Fever, unspecified (principal)

== ENCOUNTER → 2022-05-12 | Outpatient (REF) | payer OTHER | LOC: M SFHCCLAY 05-07 14:24 | PROVIDERS: ATTEND Family Medicine | DX: M60.9 Myositis, unspecified (principal); J30.81 Allergic rhinitis due to animal (cat) (dog) hair and dander ==

== ENCOUNTER → 2022-05-14 | Outpatient (REF) | payer OTHER | LOC: M SFHCCLAY 17:01 | PROVIDERS: ATTEND Family Medicine | DX: M60.9 Myositis, unspecified (principal); J30.81 Allergic rhinitis due to animal (cat) (dog) hair and dander ==

== ENCOUNTER → 2022-05-27 | Outpatient (REF) | payer OTHER ==
[2022-05-27 12:27] LABS: BASO # 0.1 10^3/uL (0.0-0.2); BASO % 0.7 % (0.0-1.0); EOS # 0.6 10^3/uL (0.0-0.5); EOS % 7.2 % (0.0-3.0); HEMATOCRIT 42.8 % (42.0-52.0); HEMOGLOBIN 14.2 g/dl (13.5-17.5); LYMPH # 3.3 10^3/uL (1.5-5.0); LYMPH % 36.4 % (24.0-44.0); MEAN CORPUSCULAR HEMOGLOBIN 28.2 pg (27.0-33.0); MEAN CORPUSCULAR HGB CONC 33.2 g/dl (32.0-36.5); MEAN CORPUSCULAR VOLUME 84.9 fl (80.0-96.0); MONO # 0.9 10^3/uL (0.0-0.8); MONO % 10.4 % (2.0-8.0); NEUTROPHILS % 44.9 % (36.0-66.0); PLATELET COUNT, AUTOMATED 317 10^3/uL (150-450); RED BLOOD COUNT 5.04 10^6/uL (4.30-6.10); WHITE BLOOD COUNT 8.9 10^3/uL (4.0-10.0)
[2022-05-27 13:09] LABS: ALBUMIN 3.9 GM/DL (3.2-5.2); ALT/SGPT 68 U/L (12-78); BILIRUBIN,TOTAL 0.3 MG/DL (0.2-1.0); BLOOD UREA NITROGEN 14 MG/DL (7-18); CALCIUM LEVEL 9.7 MG/DL (8.5-10.1); CARBON DIOXIDE LEVEL 29 MEQ/L (21-32); CHLORIDE LEVEL 105 MEQ/L (98-107); CREATININE FOR GFR 1.07 MG/DL (0.70-1.30); GLOMERULAR FILTRATION RATE > 60.0 (>60); GLUCOSE, FASTING 85 MG/DL (70-100); POTASSIUM SERUM 4.3 MEQ/L (3.5-5.1); RHEUMATOID FACTOR QUANT < 10.0 IU/ML (<15.0); SODIUM LEVEL 136 MEQ/L (136-145); TOTAL PROTEIN 7.9 GM/DL (6.4-8.2); URIC ACID 5.5 MG/DL (3.5-7.2)
== END ==
LOC: M SFHCCLAY 08:01
PROVIDERS: ATTEND Family Medicine
DX: M79.10 Myalgia, unspecified site (principal)

== ENCOUNTER → 2022-06-05 | Outpatient (REF) | payer OTHER ==
[2022-06-05 16:39] LABS: BASO # 0.1 10^3/uL (0.0-0.2); BASO % 0.7 % (0.0-1.0); EOS # 0.7 10^3/uL (0.0-0.5); EOS % 7.3 % (0.0-3.0); HEMATOCRIT 42.7 % (42.0-52.0); HEMOGLOBIN 14.5 g/dl (13.5-17.5); LYMPH # 2.7 10^3/uL (1.5-5.0); LYMPH % 30.8 % (24.0-44.0); MEAN CORPUSCULAR HEMOGLOBIN 28.4 pg (27.0-33.0); MEAN CORPUSCULAR VOLUME 83.6 fl (80.0-96.0); MONO # 0.6 10^3/uL (0.0-0.8); MONO % 7.2 % (2.0-8.0); NEUTROPHILS # 4.8 10^3/uL (1.5-8.5); NEUTROPHILS % 53.8 % (36.0-66.0); PLATELET COUNT, AUTOMATED 286 10^3/uL (150-450); RED BLOOD COUNT 5.11 10^6/uL (4.30-6.10); WHITE BLOOD COUNT 8.9 10^3/uL (4.0-10.0)
[2022-06-05 17:20] LABS: ALBUMIN 3.8 GM/DL (3.2-5.2); ALT/SGPT 77 U/L (12-78); BILIRUBIN,TOTAL 0.4 MG/DL (0.2-1.0); BLOOD UREA NITROGEN 14 MG/DL (7-18); C REACTIVE PROTEIN QUANTITATIV 0.55 MG/DL (0.00-0.30); CALCIUM LEVEL 9.3 MG/DL (8.5-10.1); CARBON DIOXIDE LEVEL 28 MEQ/L (21-32); CHLORIDE LEVEL 105 MEQ/L (98-107); CREATININE FOR GFR 1.16 MG/DL (0.70-1.30); FREE T4 0.88 NG/DL (0.76-1.46); GLOMERULAR FILTRATION RATE > 60.0 (>60); GLUCOSE, FASTING 89 MG/DL (70-100); LDH LACTATE DEHYDROGENASE 191 U/L (87-241); POTASSIUM SERUM 4.1 MEQ/L (3.5-5.1); SODIUM LEVEL 137 MEQ/L (136-145); THYROID STIMULATING HORMONE 0.963 uIU/ML (0.358-3.740); TOTAL PROTEIN 8.1 GM/DL (6.4-8.2)
[2022-06-05 17:48] LABS: TOTAL 25(OH) VITAMIN D 29.9 NG/ML (30.0-100.0)
[2022-06-05 17:49] LABS: VITAMIN B12 LEVEL 825 PG/ML (247-911)
[2022-06-05 17:58] LABS: ERYTHROCYTE SEDIMENTATION RATE 17 mm/hr (0-15)
== END ==
LOC: M SFHCRHEU 14:45
PROVIDERS: ATTEND Internal Medicine Rheumatology
DX: M35.3 Polymyalgia rheumatica (principal); R13.19 Other dysphagia; R53.1 Weakness

== ENCOUNTER → 2022-06-11 | Outpatient (REF) | payer OTHER | LOC: M SFHCCLAY 10:00 | PROVIDERS: ATTEND Family Medicine | DX: M35.3 Polymyalgia rheumatica (principal) ==

== ENCOUNTER → 2022-06-11 | Outpatient (CLI) | payer OTHER | LOC: M WUC 10:41 | PROVIDERS: ATTEND Internal Medicine Rheumatology | DX: M35.3 Polymyalgia rheumatica (principal); R53.1 Weakness; R13.19 Other dysphagia ==

== ENCOUNTER → 2022-10-22 | Outpatient (REF) | payer OTHER ==
[2022-10-22 13:01] LABS: BASO # 0.1 10^3/uL (0.0-0.2); BASO % 0.6 % (0.0-1.0); EOS # 0.8 10^3/uL (0.0-0.5); EOS % 7.5 % (0.0-3.0); HEMATOCRIT 44.1 % (42.0-52.0); HEMOGLOBIN 14.7 g/dl (13.5-17.5); LYMPH # 3.3 10^3/uL (1.5-5.0); LYMPH % 33.2 % (24.0-44.0); MEAN CORPUSCULAR HEMOGLOBIN 28.2 pg (27.0-33.0); MEAN CORPUSCULAR HGB CONC 33.3 g/dl (32.0-36.5); MEAN CORPUSCULAR VOLUME 84.5 fl (80.0-96.0); MONO # 0.8 10^3/uL (0.0-0.8); MONO % 7.7 % (2.0-8.0); NEUTROPHILS # 5.1 10^3/uL (1.5-8.5); NEUTROPHILS % 50.8 % (36.0-66.0); PLATELET COUNT, AUTOMATED 323 10^3/uL (150-450); RED BLOOD COUNT 5.22 10^6/uL (4.30-6.10)
[2022-10-22 13:32] LABS: ALBUMIN 3.9 G/DL (3.2-5.2); ALKALINE PHOSPHATASE 96 U/L (46-116); ALT/SGPT 84 U/L (7.0-40); AST/SGOT 50 U/L (<34); BILIRUBIN,TOTAL 0.4 MG/DL (0.3-1.2); BLOOD UREA NITROGEN 16 MG/DL (9-23); CALCIUM LEVEL 9.4 MG/DL (8.5-10.1); CARBON DIOXIDE LEVEL 27 MMOL/L (20-31); CHLORIDE LEVEL 105 MMOL/L (98-107); CREATININE FOR GFR 1.01 MG/DL (0.70-1.30); GLOMERULAR FILTRATION RATE > 60.0 (>60); GLUCOSE, FASTING 121 MG/DL (60-100); MAGNESIUM LEVEL 1.8 MG/DL (1.8-2.4); POTASSIUM SERUM 4.2 MMOL/L (3.5-5.1); SODIUM LEVEL 138 MMOL/L (136-145); TOTAL PROTEIN 7.5 G/DL (5.7-8.2)
== END ==
LOC: M SFHCCLAY 08:34
PROVIDERS: ATTEND Family Medicine
DX: M79.10 Myalgia, unspecified site (principal); U09.9 Post COVID-19 condition, unspecified

== ENCOUNTER → 2023-04-29 | Outpatient (REF) | payer OTHER ==
[2023-04-29 17:39] LABS: THYROID STIMULATING HORMONE 0.91 uIU/ML (0.55-4.78)
[2023-05-01 23:12] LABS: TESTOSTERONE FREE (DIRECT) 6.8 pg/mL (8.7-25.1)
== END ==
LOC: M SFHCCLAY 14:42
PROVIDERS: ATTEND Family Medicine
DX: M35.3 Polymyalgia rheumatica (principal); F32.1 Major depressive disorder, single episode, moderate; Z74.09 Other reduced mobility

== ENCOUNTER → 2023-06-05 | Outpatient (CLI) | payer OTHER ==
[~2023-06-05] MED LIST changes: +BARIUM SULFATE 700 MG TABLET (E-Z-DISK) As Ordered ONE; +E-Z-PAQUE 96% w/w SUSP 176GM BTL As Ordered ONE; +VARIBAR NECTAR 40% w/v 240ML SUSP BTL As Ordered ONE; +VARIBAR PUDDING 40% w/v 230ML TUBE As Ordered ONE
== END ==
LOC: M RAD 11:09
PROVIDERS: ATTEND Family Medicine
DX: R13.12 Dysphagia, oropharyngeal phase (principal)

== ENCOUNTER → 2023-06-30 | Outpatient (REF) | payer OTHER ==
[~2023-06-30] MED LIST changes: -BARIUM SULFATE 700 MG TABLET (E-Z-DISK) As Ordered ONE; -E-Z-PAQUE 96% w/w SUSP 176GM BTL As Ordered ONE; -VARIBAR NECTAR 40% w/v 240ML SUSP BTL As Ordered ONE; -VARIBAR PUDDING 40% w/v 230ML TUBE As Ordered ONE
== END ==
LOC: M SFHCCLAY 14:27
PROVIDERS: ATTEND Family Medicine
DX: Z12.5 Encounter for screening for malignant neoplasm of prostate (principal); E29.1 Testicular hypofunction

== ENCOUNTER → 2023-07-09 | Outpatient (REF) | payer OTHER ==
[2023-07-10 19:08] LABS: TESTOSTERONE FREE (DIRECT) 5.4 pg/mL (8.7-25.1)
== END ==
LOC: M SFHCCLAY 07:16
PROVIDERS: ATTEND Family Medicine
DX: E29.1 Testicular hypofunction (principal)

== ENCOUNTER → 2023-09-17 | Outpatient (CLI) | payer OTHER | LOC: M CLY 14:42 | PROVIDERS: ATTEND Family Medicine | DX: R13.19 Other dysphagia (principal); R53.1 Weakness; R21 Rash and other nonspecific skin eruption; M36.3 Arthropathy in other blood disorders ==

== ENCOUNTER → 2023-09-17 | Outpatient (REF) | payer OTHER ==
[2023-09-17 19:49] LABS: CPK CREATINE PHOSPHOKINASE 145 U/L (46-171); LDH LACTATE DEHYDROGENASE 309 U/L (120-246)
[2023-09-17 19:50] LABS: ALBUMIN 3.8 G/DL (3.2-5.2); ALKALINE PHOSPHATASE 105 U/L (46-116); ALT/SGPT 76 U/L (7.0-40); AST/SGOT 35 U/L (<34); BILIRUBIN,TOTAL 0.3 MG/DL (0.3-1.2); BLOOD UREA NITROGEN 16 MG/DL (9-23); CALCIUM LEVEL 9.1 MG/DL (8.5-10.1); CARBON DIOXIDE LEVEL 30 MMOL/L (20-31); CHLORIDE LEVEL 105 MMOL/L (98-107); CREATININE FOR GFR 0.97 MG/DL (0.70-1.30); GLOMERULAR FILTRATION RATE > 60.0 (>60); GLUCOSE, FASTING 112 MG/DL (60-100); POTASSIUM SERUM 4.4 MMOL/L (3.5-5.1); SODIUM LEVEL 140 MMOL/L (136-145); TOTAL PROTEIN 7.5 G/DL (5.7-8.2)
[2023-09-17 20:07] LABS: BASO % 0.3 % (0.0-1.0); EOS # 0.7 10^3/uL (0.0-0.5); EOS % 6.4 % (0.0-3.0); HEMATOCRIT 43.9 % (42.0-52.0); HEMOGLOBIN 14.8 g/dl (13.5-17.5); LYMPH # 2.8 10^3/uL (1.5-5.0); LYMPH % 27.4 % (24.0-44.0); MEAN CORPUSCULAR HGB CONC 33.7 g/dl (32.0-36.5); MEAN CORPUSCULAR VOLUME 85.9 fl (80.0-96.0); MONO # 0.6 10^3/uL (0.0-0.8); MONO % 5.4 % (2.0-8.0); NEUTROPHILS # 6.1 10^3/uL (1.5-8.5); NEUTROPHILS % 60.2 % (36.0-66.0); PLATELET COUNT, AUTOMATED 294 10^3/uL (150-450); RED BLOOD COUNT 5.11 10^6/uL (4.30-6.10); WHITE BLOOD COUNT 10.1 10^3/uL (4.0-10.0)
[2023-09-17 20:18] LABS: ERYTHROCYTE SEDIMENTATION RATE 30 mm/hr (0-15)
== END ==
LOC: M SFHCRHEU 14:37
PROVIDERS: ATTEND Internal Medicine Rheumatology
DX: M35.3 Polymyalgia rheumatica (principal); R13.19 Other dysphagia; R53.1 Weakness; R21 Rash and other nonspecific skin eruption

== ENCOUNTER → 2023-10-30 | Outpatient (REF) | payer OTHER ==
[2023-10-30 18:01] LABS: BASO # 0.1 10^3/uL (0.0-0.2); BASO % 0.5 % (0.0-1.0); EOS # 0.6 10^3/uL (0.0-0.5); EOS % 6.1 % (0.0-3.0); HEMATOCRIT 43.7 % (42.0-52.0); HEMOGLOBIN 14.9 g/dl (13.5-17.5); LYMPH # 2.5 10^3/uL (1.5-5.0); LYMPH % 24.4 % (24.0-44.0); MEAN CORPUSCULAR HGB CONC 34.1 g/dl (32.0-36.5); MONO # 0.8 10^3/uL (0.0-0.8); MONO % 7.8 % (2.0-8.0); NEUTROPHILS # 6.2 10^3/uL (1.5-8.5); NEUTROPHILS % 60.9 % (36.0-66.0); PLATELET COUNT, AUTOMATED 316 10^3/uL (150-450); RED BLOOD COUNT 5.14 10^6/uL (4.30-6.10); WHITE BLOOD COUNT 10.1 10^3/uL (4.0-10.0)
[2023-10-30 18:26] LABS: ALBUMIN 3.7 G/DL (3.2-5.2); ALKALINE PHOSPHATASE 97 U/L (46-116); ALT/SGPT 53 U/L (7.0-40); AST/SGOT 28 U/L (<34); BILIRUBIN,TOTAL 0.4 MG/DL (0.3-1.2); BLOOD UREA NITROGEN 16 MG/DL (9-23); CALCIUM LEVEL 9.3 MG/DL (8.5-10.1); CARBON DIOXIDE LEVEL 28 MMOL/L (20-31); CHLORIDE LEVEL 106 MMOL/L (98-107); CREATININE FOR GFR 0.96 MG/DL (0.70-1.30); GLOMERULAR FILTRATION RATE > 60.0 (>60); GLUCOSE, FASTING 89 MG/DL (60-100); POTASSIUM SERUM 4.3 MMOL/L (3.5-5.1); SODIUM LEVEL 139 MMOL/L (136-145); TOTAL PROTEIN 7.5 G/DL (5.7-8.2)
[2023-10-30 18:29] LABS: HCG, SERUM QUALITATIVE NEGATIVE
== END ==
LOC: M LABDRAWC 17:31
PROVIDERS: ATTEND Orthopaedic Surgery
DX: M25.552 Pain in left hip (principal)

== ENCOUNTER 2023-11-27 07:12 | Emergency (ER) | payer OTHER ==
[~2023-11-27] VITALS: Ht 177.8 cm; Wt 114.1 kg
[2023-11-27] MEDS ORDERED: ASPI81TA26 (07:18)
[2023-11-27] MEDS ORDERED: OXYC5CAP56 (07:18)
[2023-11-27] MEDS ORDERED: DULO1CAP5 (07:18)
[2023-11-27] MEDS ORDERED: GABA-282 (07:18)
[2023-11-27] MEDS ORDERED: TRAZ-257 (07:18)
[2023-11-27] MEDS: NS 1,000 ML IV ONE (07:46)
[2023-11-27] MEDS: ONDANSETRON 4MG 2ML VIAL IV ONE (07:47)
[2023-11-27 07:58] LABS: BASO % 0.2 % (0.0-1.0); EOS # 0.5 10^3/uL (0.0-0.5); EOS % 2.9 % (0.0-3.0); HEMATOCRIT 44.3 % (42.0-52.0); HEMOGLOBIN 14.8 g/dl (13.5-17.5); LYMPH # 0.9 10^3/uL (1.5-5.0); LYMPH % 5.7 % (24.0-44.0); MEAN CORPUSCULAR HEMOGLOBIN 28.4 pg (27.0-33.0); MEAN CORPUSCULAR HGB CONC 33.4 g/dl (32.0-36.5); MEAN CORPUSCULAR VOLUME 84.9 fl (80.0-96.0); MONO # 0.9 10^3/uL (0.0-0.8); MONO % 5.5 % (2.0-8.0); NEUTROPHILS # 13.7 10^3/uL (1.5-8.5); NEUTROPHILS % 85.3 % (36.0-66.0); PLATELET COUNT, AUTOMATED 302 10^3/uL (150-450); RED BLOOD COUNT 5.22 10^6/uL (4.30-6.10); WHITE BLOOD COUNT 16.1 10^3/uL (4.0-10.0)
[2023-11-27 08:27] LABS: LIPASE 27 U/L (12-53)
[2023-11-27 08:29] LABS: AMYLASE 98 U/L (30-118)
[2023-11-27 08:30] LABS: ALBUMIN 4.2 G/DL (3.2-5.2); ALKALINE PHOSPHATASE 101 U/L (46-116); ALT/SGPT 61 U/L (7.0-40); AST/SGOT 32 U/L (<34); BILIRUBIN,DIRECT 0.2 MG/DL (<0.4); BILIRUBIN,TOTAL 0.7 MG/DL (0.3-1.2); BLOOD UREA NITROGEN 21 MG/DL (9-23); CALCIUM LEVEL 9.6 MG/DL (8.5-10.1); CARBON DIOXIDE LEVEL 28 MMOL/L (20-31); CHLORIDE LEVEL 106 MMOL/L (98-107); CREATININE FOR GFR 1.05 MG/DL (0.70-1.30); GLOMERULAR FILTRATION RATE > 60.0 (>60); GLUCOSE, FASTING 113 MG/DL (60-100); MAGNESIUM LEVEL 1.8 MG/DL (1.8-2.4); POTASSIUM SERUM 4.2 MMOL/L (3.5-5.1); SODIUM LEVEL 141 MMOL/L (136-145)
[2023-11-27] MEDS: GABAPENTIN 300 MG CAP PO ONE (09:01)
[2023-11-27] MEDS: DULoxetine 30MG CAPSULE (CYMBALTA) PO ONE (09:01)
[2023-11-27] MEDS ORDERED: ISOVUE-370 76% 100ML VIAL As Ordered ONE (09:07)
[2023-11-27 09:15] LABS: CPK CREATINE PHOSPHOKINASE 244 U/L (46-171)
[2023-11-27 11:03] VITALS: BP 142/92; TEMP 99; O2SAT 97
== END 2023-11-27 11:17 | disposition home or self-care (01) ==
LOC: M ED 07:12
DX: A08.4 Viral intestinal infection, unspecified (principal); Z79.1 Long term (current) use of non-steroidal anti-inflammatories (NSAID); Z79.899 Other long term (current) drug therapy
CPT/HCPCS: 74177; 80047; 80048; 80076; 81001; 82150; 82550; 83605; 83690; 83735; 85025; 87507; 96374; 99284; J2405; Q9967

== ENCOUNTER → 2024-02-02 | Outpatient (CLI) | payer OTHER ==
[~2024-02-02] MED LIST changes: +ASPI81TA26; +DULO1CAP5; +GABA-282; +OXYC5CAP56; +TRAZ-257
== END ==
LOC: M PLAIMG 09:40
PROVIDERS: ATTEND Internal Medicine Rheumatology
DX: M35.3 Polymyalgia rheumatica (principal)

== ENCOUNTER → 2024-02-29 | Outpatient (REF) | payer OTHER ==
[2024-02-29 17:45] LABS: ALBUMIN 3.9 G/DL (3.2-5.2); ALKALINE PHOSPHATASE 106 U/L (46-116); ALT/SGPT 55 U/L (7.0-40); AST/SGOT 35 U/L (<34); BILIRUBIN,TOTAL 0.5 MG/DL (0.3-1.2); BLOOD UREA NITROGEN 16 MG/DL (9-23); CALCIUM LEVEL 9.4 MG/DL (8.5-10.1); CARBON DIOXIDE LEVEL 30 MMOL/L (20-31); CHLORIDE LEVEL 102 MMOL/L (98-107); CREATININE FOR GFR 1.23 MG/DL (0.70-1.30); GLOMERULAR FILTRATION RATE > 60.0 (>60); GLUCOSE, FASTING 80 MG/DL (60-100); SODIUM LEVEL 137 MMOL/L (136-145); TOTAL PROTEIN 7.5 G/DL (5.7-8.2)
[2024-02-29 17:57] LABS: BASO # 0.1 10^3/uL (0.0-0.2); BASO % 0.5 % (0.0-1.0); EOS # 0.5 10^3/uL (0.0-0.5); EOS % 5.3 % (0.0-3.0); HEMATOCRIT 42.1 % (42.0-52.0); HEMOGLOBIN 14.1 g/dl (13.5-17.5); LYMPH # 3.2 10^3/uL (1.5-5.0); LYMPH % 33.8 % (24.0-44.0); MEAN CORPUSCULAR HEMOGLOBIN 28.1 pg (27.0-33.0); MEAN CORPUSCULAR HGB CONC 33.5 g/dl (32.0-36.5); MONO # 0.9 10^3/uL (0.0-0.8); MONO % 9.8 % (2.0-8.0); NEUTROPHILS # 4.8 10^3/uL (1.5-8.5); NEUTROPHILS % 50.4 % (36.0-66.0); PLATELET COUNT, AUTOMATED 313 10^3/uL (150-450); RED BLOOD COUNT 5.01 10^6/uL (4.30-6.10); WHITE BLOOD COUNT 9.5 10^3/uL (4.0-10.0)
== END ==
LOC: M LABDRAWC 16:40
PROVIDERS: ATTEND Orthopaedic Surgery
DX: M24.152 Other articular cartilage disorders, left hip (principal); M25.552 Pain in left hip

== ENCOUNTER → 2024-05-04 | Outpatient (REF) | payer OTHER ==
[2024-05-04 17:51] LABS: BASO # 0.1 10^3/uL (0.0-0.2); BASO % 0.6 % (0.0-1.0); EOS # 0.8 10^3/uL (0.0-0.5); EOS % 7.9 % (0.0-3.0); HEMATOCRIT 46.6 % (42.0-52.0); HEMOGLOBIN 15.2 g/dl (13.5-17.5); LYMPH # 2.8 10^3/uL (1.5-5.0); LYMPH % 28.9 % (24.0-44.0); MEAN CORPUSCULAR HEMOGLOBIN 28.1 pg (27.0-33.0); MEAN CORPUSCULAR HGB CONC 32.6 g/dl (32.0-36.5); MEAN CORPUSCULAR VOLUME 86.3 fl (80.0-96.0); MONO # 0.8 10^3/uL (0.0-0.8); NEUTROPHILS # 5.2 10^3/uL (1.5-8.5); NEUTROPHILS % 53.8 % (36.0-66.0); PLATELET COUNT, AUTOMATED 322 10^3/uL (150-450); WHITE BLOOD COUNT 9.7 10^3/uL (4.0-10.0)
[2024-05-04 18:11] LABS: ALKALINE PHOSPHATASE 109 U/L (46-116); ALT/SGPT 46 U/L (7.0-40); AST/SGOT 29 U/L (<34); BILIRUBIN,TOTAL 0.7 MG/DL (0.3-1.2); BLOOD UREA NITROGEN 12 MG/DL (9-23); CALCIUM LEVEL 9.6 MG/DL (8.5-10.1); CARBON DIOXIDE LEVEL 29 MMOL/L (20-31); CHLORIDE LEVEL 106 MMOL/L (98-107); CREATININE FOR GFR 1.14 MG/DL (0.70-1.30); GLOMERULAR FILTRATION RATE > 60.0 (>60); GLUCOSE, FASTING 99 MG/DL (60-100); IRON (FE) 145 UG/DL (65-175); PERCENT SATURATION 37.4 % (19.7-50.0); POTASSIUM SERUM 3.9 MMOL/L (3.5-5.1); SODIUM LEVEL 138 MMOL/L (136-145); TOTAL IRON BINDING CAPACITY 388 UG/DL (250-425); TOTAL PROTEIN 7.9 G/DL (5.7-8.2)
[2024-05-04 18:13] LABS: FERRITIN 44.1 NG/ML (10.5-307.3)
== END ==
LOC: M LABDRAWC 16:43
PROVIDERS: ATTEND Orthopaedic Surgery
DX: Z98.890 Other specified postprocedural states (principal); M25.552 Pain in left hip; M16.12 Unilateral primary osteoarthritis, left hip

== ENCOUNTER → 2024-05-05 | Outpatient (REF) | payer OTHER | LOC: M LABDRAWC 16:38 | PROVIDERS: ATTEND Orthopaedic Surgery | DX: M25.552 Pain in left hip (principal); Z98.890 Other specified postprocedural states; M16.12 Unilateral primary osteoarthritis, left hip ==

== ENCOUNTER → 2024-06-01 | Outpatient (CLI) | payer OTHER | LOC: M CLY 11:21 | PROVIDERS: ATTEND Family Medicine | DX: M25.362 Other instability, left knee (principal) ==

== ENCOUNTER → 2024-09-21 | Outpatient (REF) | payer OTHER ==
[~2024-09-21] MED LIST changes: +GABA-1172; -GABA-282
[2024-09-21 13:53] LABS: ALBUMIN 3.9 G/DL (3.2-5.2); ALKALINE PHOSPHATASE 95 U/L (40-129); ALT/SGPT 35 U/L (7.0-40); AST/SGOT 21 U/L (<34); BILIRUBIN,TOTAL 0.3 MG/DL (0.3-1.2); BLOOD UREA NITROGEN 11 MG/DL (9-23); CALCIUM LEVEL 9.9 MG/DL (8.5-10.1); CARBON DIOXIDE LEVEL 32 MMOL/L (20-31); CHLORIDE LEVEL 105 MMOL/L (98-107); CHOLESTEROL LEVEL 212 MG/DL (<200); CREATININE FOR GFR 0.98 MG/DL (0.70-1.30); GLOMERULAR FILTRATION RATE > 60.0 (>60); GLUCOSE, FASTING 93 MG/DL (60-100); HDL CHOLESTEROL 38.5 MG/DL (>40); LDL CHOLESTEROL 142.7 MG/DL (<100); NON-HDL-C 173.5 MG/DL; SODIUM LEVEL 143 MMOL/L (136-145); TOTAL PROTEIN 7.6 G/DL (5.7-8.2); TRIGLYCERIDES LEVEL 154 MG/DL (<150)
[2024-09-21 13:56] LABS: TESTOSTERONE 253 NG/DL (241-827)
== END ==
LOC: M SFHCCLAY 08:40
PROVIDERS: ATTEND Physician Assistant
DX: F32.A Depression, unspecified (principal); I10 Essential (primary) hypertension; R79.89 Other specified abnormal findings of blood chemistry; J30.81 Allergic rhinitis due to animal (cat) (dog) hair and dander; M16.0 Bilateral primary osteoarthritis of hip; L40.9 Psoriasis, unspecified; M35.3 Polymyalgia rheumatica

== ENCOUNTER → 2024-10-10 | Outpatient (REF) | payer OTHER ==
[2024-10-10 11:16] LABS: BASO # 0.1 10^3/uL (0.0-0.2); BASO % 0.5 % (0.0-1.0); EOS # 0.5 10^3/uL (0.0-0.5); EOS % 5.3 % (0.0-3.0); HEMATOCRIT 45.5 % (42.0-52.0); HEMOGLOBIN 15.3 g/dl (13.5-17.5); LYMPH # 2.9 10^3/uL (1.5-5.0); LYMPH % 29.1 % (24.0-44.0); MEAN CORPUSCULAR HEMOGLOBIN 29.1 pg (27.0-33.0); MEAN CORPUSCULAR HGB CONC 33.6 g/dl (32.0-36.5); MEAN CORPUSCULAR VOLUME 86.5 fl (80.0-96.0); MONO % 10.2 % (2.0-8.0); NEUTROPHILS # 5.5 10^3/uL (1.5-8.5); NEUTROPHILS % 54.6 % (36.0-66.0); PLATELET COUNT, AUTOMATED 318 10^3/uL (150-450); RED BLOOD COUNT 5.26 10^6/uL (4.30-6.10)
[2024-10-10 12:17] LABS: ALBUMIN 4.1 G/DL (3.2-5.2); ALKALINE PHOSPHATASE 92 U/L (40-129); ALT/SGPT 32 U/L (7.0-40); AST/SGOT 21 U/L (<34); BILIRUBIN,TOTAL 0.5 MG/DL (0.3-1.2); BLOOD UREA NITROGEN 18 MG/DL (9-23); CALCIUM LEVEL 9.7 MG/DL (8.5-10.1); CARBON DIOXIDE LEVEL 25 MMOL/L (20-31); CHLORIDE LEVEL 105 MMOL/L (98-107); GLOMERULAR FILTRATION RATE > 60.0 (>60); GLUCOSE, FASTING 111 MG/DL (60-100); IRON (FE) 59 UG/DL (65-175); PERCENT SATURATION 15.6 % (19.7-50.0); POTASSIUM SERUM 4.3 MMOL/L (3.5-5.1); SODIUM LEVEL 144 MMOL/L (136-145); TOTAL IRON BINDING CAPACITY 377 UG/DL (250-425)
[2024-10-10 12:18] LABS: FERRITIN 36.1 NG/ML (10.5-307.3)
== END ==
LOC: M LABDRAWC 10:56
PROVIDERS: ATTEND Orthopaedic Surgery
DX: Z98.890 Other specified postprocedural states (principal); M25.551 Pain in right hip; D68.9 Coagulation defect, unspecified

== ENCOUNTER → 2025-03-23 | Outpatient (CLI) | payer OTHER | LOC: M RAD 14:04 | PROVIDERS: ATTEND Physician Assistant | DX: I73.9 Peripheral vascular disease, unspecified (principal) ==

== ENCOUNTER → 2025-04-11 | Outpatient (REF) | payer OTHER ==
[2025-04-11 18:14] LABS: CALCIUM LEVEL 9.6 MG/DL (8.5-10.1); CARBON DIOXIDE LEVEL 29 MMOL/L (20-31); CHLORIDE LEVEL 101 MMOL/L (98-107); CREATININE FOR GFR 1.02 MG/DL (0.70-1.30); GLOMERULAR FILTRATION RATE > 90.0 (>60); POTASSIUM SERUM 4.1 MMOL/L (3.5-5.1); SODIUM LEVEL 141 MMOL/L (136-145)
== END ==
LOC: M SFHCCLAY 13:48
PROVIDERS: ATTEND Physician Assistant
DX: I73.9 Peripheral vascular disease, unspecified (principal)

== ENCOUNTER → 2025-06-21 | Outpatient (REF) | payer OTHER ==
[2025-06-21 19:25] LABS: ALT/SGPT 17 U/L (7.0-40); AST/SGOT 18 U/L (<34); CALCIUM LEVEL 9.6 MG/DL (8.5-10.1); CARBON DIOXIDE LEVEL 31 MMOL/L (20-31); CHLORIDE LEVEL 103 MMOL/L (98-107); CHOLESTEROL LEVEL 180 MG/DL (<200); CHOLESTEROL RISK RATIO 4.80 (<5); CREATININE FOR GFR 0.99 MG/DL (0.70-1.30); GLOMERULAR FILTRATION RATE > 90.0 (>60); LDL CHOLESTEROL 107.3 MG/DL (<100); NON-HDL-C 142.5 MG/DL; POTASSIUM SERUM 4.3 MMOL/L (3.5-5.1); SODIUM LEVEL 141 MMOL/L (136-145); TRIGLYCERIDES LEVEL 176 MG/DL (<150)
[2025-06-21 19:26] LABS: TESTOSTERONE 400 NG/DL (241-827)
[2025-06-21 19:57] LABS: ESTIMATED AVERAGE GLUCOSE 105.0 MG/DL (60-110)
== END ==
LOC: M SFHCCLAY 09:40
PROVIDERS: ATTEND Physician Assistant
DX: F32.A Depression, unspecified (principal); I10 Essential (primary) hypertension; R79.89 Other specified abnormal findings of blood chemistry; J30.81 Allergic rhinitis due to animal (cat) (dog) hair and dander; M16.0 Bilateral primary osteoarthritis of hip; L40.9 Psoriasis, unspecified; M35.3 Polymyalgia rheumatica; G47.33 Obstructive sleep apnea (adult) (pediatric); E66.811 Obesity, class 1